=== PATIENT | female | born 1995 | race Caucasian/White ===

== ENCOUNTER 2020-01-19 08:59 | Emergency (ER) | payer OTHER ==
[~2020-01-19] VITALS: Ht 160 cm; Wt 68.0 kg
[2020-01-19] MEDS ORDERED: PREN-58 PO (09:34)
[2020-01-19 09:35] VITALS: BP_SYST 108
--- NOTE | 2020-01-19 09:39 | NUR ---
PATIENT RETURNED TO WAITING ROOM WITH UX CUP AWAITING BED ASSIGNMENT
--- NOTE | 2020-01-19 10:04 | NUR ---
Patient to ER bed H2 to gown for evaluation. Side rails up.
--- NOTE | 2020-01-19 10:05 | NUR ---
Patient arrived in the ED c/o frequency and dysuria for 1 week now. Denied any chest pain or shortness of breath. Denied any fevers, chills, nausea or vomiting. Patient is alert and oriented x4, respirations even and unlabored, speaking in full sentences, and ambulating with a steady gait. VSS, pain level 0/10. Informed of the approximate wait time. Instructed to notify ED staff for any changes in condition or worsening of symptoms. Patient verbalized understanding.
--- NOTE | 2020-01-19 10:06 | NUR ---
ER Dr. Roman at bedside examining patient.
[2020-01-19 10:13] VITALS: BP_SYST 108
--- NOTE | 2020-01-19 10:14 | NUR ---
Patient given written and verbal discharge instructions and verbalizes understanding. ER MD discussed with patient the results and treatment provided. Patient in stable condition. ID arm band removed. Rx of Macrobid given. Patient educated on pain management and to follow up with PMD. Pain Scale 0/10. Opportunity for questions provided and answered. Medication side effect fact sheet provided.
[2020-01-19 10:36] LABS: BILIRUBIN,URINE NEGATIVE (NEGATIVE); BLOOD, URINE NEGATIVE (NEGATIVE); CLARITY/URINE SL CLOUDY (CLEAR); COLOR,URINE YELLOW (YELLOW); GLUCOSE,URINE NEGATIVE (NEGATIVE); KETONES,URINE NEGATIVE (NEGATIVE); LEUKOCYTE ESTERASE ,URINE 2+ (NEGATIVE); NITRITE, URINE NEGATIVE (NEGATIVE); PROTEIN URINE NEGATIVE (NEGATIVE); UROBILINOGEN,URINE 0.2 (0.2-1.0)
[2020-01-19 10:43] LABS: BACTERIA,URINE FEW /HPF (None Seen); RBC,URINE NONE SEEN /HPF (0-3)
[2020-01-19 10:44] LABS: CALCIUM OXALATE CRYSTALS,UR None Seen /HPF (None Seen); CALCIUM PHOSPHATE CRYSTALS,UR None Seen /HPF (None Seen); COARSE GRANULAR CASTS,URINE None Seen /LPF (None Seen); FINE GRANULAR CASTS,URINE None Seen /LPF (None Seen); HYALINE CASTS, URINE None Seen /LPF (None Seen); MUCUS,URINE None Seen /LPF (None Seen); OTHER CASTS, URINE None Seen /LPF (None Seen); OTHER CRYSTALS,URINE None Seen /HPF (None Seen); TRICHOMONAS,URINE None Seen /HPF (None Seen); TRIPLE PHOSPHATE CRYSTAL,UR None Seen /HPF (None Seen); URIC ACID CRYSTALS,URINE None Seen /HPF (None Seen); URINE AMORPHOUS PHOSPHATES None Seen /HPF (None Seen); URINE AMORPHOUS URATE None Seen /HPF (None Seen); WAXY CASTS,URINE None Seen /LPF (None Seen); YEAST,URINE Rare /HPF (None Seen)
== END 2020-01-19 10:13 | disposition home or self-care (01) ==
LOC: SED 08:59
DX: O23.43 Unspecified infection of urinary tract in pregnancy, third trimester (principal); Z3A.28 28 weeks gestation of pregnancy
CPT/HCPCS: 81000-TC; 87086; 99283

== ENCOUNTER 2021-06-26 08:22 | Emergency (ER) | payer OTHER ==
[~2021-06-26] VITALS: Ht 154.9 cm; Wt 59.0 kg
[~2021-06-26 08:22] MED LIST: PREN-58 PO
[2021-06-26 08:32] VITALS: BP_SYST 112
--- NOTE | 2021-06-26 08:32 | NUR ---
Patient to ER bed 6 to gown for evaluation. Side rails up. Report given to Lea ARMSTRONG.
--- NOTE | 2021-06-26 08:35 | NUR ---
PT CAME IN FROM HOME C/O "COLD SORE" TO UPPER LIP. PT STATES SHE HAS A HX AND WOULD LIKE MEDICATION. PT HAS BUMP TO UPPER LIP. PT IS AAOX4, AMBUALTORY, V/S STABLE, NO DISTRESS NOTED.
--- NOTE | 2021-06-26 09:00 | NUR ---
ALVIN CAMPBELL AT THE BEDSIDE EXAMINING PT Addendum: 06/26/21 at 0914 by [email or web address] ALVIN TAYLOR AT THE BEDSIDE EXAMINING PT
[2021-06-26] MEDS ORDERED: ACYC-133 PO (09:09)
[2021-06-26 09:12] VITALS: BP_SYST 112
--- NOTE | 2021-06-26 09:12 | NUR ---
Patient given written and verbal discharge instructions and verbalizes understanding. ER MD discussed with patient the results and treatment provided. Patient in stable condition. ID arm band removed. Rx of ACYCLOVIR given. Patient educated on pain management and to follow up with PMD. Pain Scale 0/10. Opportunity for questions provided and answered. Medication side effect fact sheet provided.
== END 2021-06-26 09:13 | disposition home or self-care (01) ==
LOC: SED 08:22
DX: K12.1 Other forms of stomatitis (principal); Z79.899 Other long term (current) drug therapy
CPT/HCPCS: 99283